=== PATIENT | female | born 1985 | race Caucasian/White ===

== ENCOUNTER 2023-02-20 11:31 | Outpatient (REF) | payer OTHER, MEDICAID, SELFPAY ==
[2023-02-20 13:13] LABS: Hematocrit 40.1 % (37.0-47.0); Hemoglobin 13.7 g/dl (12.0-16.0); Mean Corpuscular HGB Conc 34.2 g/dl (31.0-35.0); Mean Corpuscular Hemoglobin 28.5 pg (27.0-33.0); Mean Corpuscular Volume 83.5 fL (80.0-98.0); Mean Platelet Volume 10.9 fL (9.4-12.3); Platelet Count 282 X10*3/uL (160-400); Red Cell Distribution Width 13.1 % (11.0-16.0); White Blood Count 8.3 X10*3/uL (4.8-10.8)
[2023-02-20 13:56] LABS: Alanine Aminotransferase 20 U/L (0-31); Albumin Level 4.6 g/dL (3.5-5.0); Alkaline Phosphatase 77 U/L (39-117); Aspartate Amino Transferase 19 U/L (5-31); Bilirubin Direct 0.3 mg/dL (0.0-0.5); Bilirubin Total 0.9 mg/dL (0.0-1.0); C Reactive Protein 0.99 mg/dL (< or = 0.50); Total Protein 8.2 g/dL (6.5-8.0)
[2023-02-20 14:07] LABS: TSH reflex Free T4 1.88 uIU/mL (0.32-4.0)
[2023-02-20 14:23] LABS: Folate 8.3 ng/mL (> or = 4.0); Vitamin B12 655 pg/mL (200-900)
[2023-02-24 13:33] LABS: Vitamin D 25-OH, D2 <4 ng/mL; Vitamin D 25-OH, D3 26 ng/mL; Vitamin D 25-OH, Total 26 ng/mL (30-100)
== END 2023-02-20 11:32 | disposition home or self-care (01) ==
LOC: HO.LAB 11:31
PROVIDERS: PCP Internal Medicine; Visit Provider Nurse Practitioner Family
DX: K21.9 Gastro-esophageal reflux disease without esophagitis (principal); K59.00 Constipation, unspecified; R19.7 Diarrhea, unspecified; E55.9 Vitamin D deficiency, unspecified; K64.8 Other hemorrhoids; K62.5 Hemorrhage of anus and rectum; R14.0 Abdominal distension (gaseous); R10.30 Lower abdominal pain, unspecified; K58.2 Mixed irritable bowel syndrome
CPT/HCPCS: 36415; 80076; 82306; 82607; 82746; 84443; 85027; 86140

== ENCOUNTER 2023-02-20 11:31 | Outpatient (AMB) | payer OTHER, MEDICAID, SELFPAY ==
--- NOTE | 2023-02-20 11:33 | MHC.OFFVIS ---
Intake Vital Signs 02/20/23 11:36 Height 5 ft 6 in Weight 249 lb 1.957 oz BMI 40.2 BP 140/85 H Blood Pressure Location Lt brachial Position Sitting Pulse 69 Intake Visit Reasons: Irritable bowel syndrome Intake Note: Patrica presents in the office as a new patient for IBS. CC: She was not diagnosed with IBS. She had allergy testing done and she was allergic to yeast and alek. A few years ago she started bleeding from her rectum so she was diagnosed with internal hemorrhoids from a colonoscopy. She has eliminated gluten from her diet. She has about 7/8 BM a day that are all loose stool. She states that she does have a picture of the blood that occurs on occasion. She will get an urge that she has to have a BM and it will be nothing but blood. More recent there is little clots that come out with it. Extreme anal itching that is so severe. She was given Hydrocortisone cream to use that does not seem to work often. 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 Patient is sent to us by her PCP. Patient has had rectal bleed in the past and recently she started having blood in her stools after bowel movements. Sometimes patient reports that she will have blood even when she does not have a bowel movement. Patient was diagnosed with internal hemorrhoids and no polyps. Had colonoscopy on 12/08/2019 that otherwise was normal. Patient was diagnosed with internal hemorrhoids. Patient reports urge before going to the bathroom with bowel movement and sometimes patient is unable to have a bowel movement. Reports occasional burning like discomfort and sometimes sharp pain in the lower abdomen. Patient denies any unintentional weight loss. PFSH Surgical History (Updated 02/20/23 @ 11:39 by DEREK Nichols) Hx of cervical discectomy Hx of colonoscopy Family History (Updated 02/20/23 @ 11:39 by DEREK Nichols) Father Cancer Prostate cancer Social History (Updated 02/20/23 @ 11:40 by DEREK Nichols) Household Members: Children Alcohol intake: current Alcohol intake frequency: holidays/special occasions only Patient Tobacco Use Status: Never used Tobacco Substance Use Type: Marijuana Review of Systems Const Denies weight gain and Denies weight loss ENT Reports no additional complaints, Denies dysphagia and Denies odynophagia Card Reports no additional complaints Resp Reports no additional complaints GI Reports abdominal pain (sharp stabbing, burning), Denies belching, Denies melena, Denies bloating, Denies change in bowel habits, Reports constipation, Denies dysphagia, Denies excessive flatus, Denies dyspepsia, Denies heartburn, Denies diarrhea, Reports loose stools, Denies nausea, Denies odynophagia and Denies vomiting Musc Reports no additional complaints Neuro Reports no additional complaints Psych Reports no additional complaints Endo Reports no additional complaints Physical Exam Vital Signs: Last Vital Signs Pulse 69 02/20/23 11:36 BP 140/85 H 02/20/23 11:36 BMI result Body Mass Index 40.2 Const General: healthy appearing, no acute distress and well developed Nutritional Appearance: obese Orientation/consciousness: patient oriented x3 HEENT Head: Yes normal to inspection, Yes normocephalic and Yes atraumatic Face and sinus: Yes normal facial exam Mouth: Normal oral and palatal mucosa present Throat: Yes posterior oropharynx normal, Yes tonsils normal and Yes uvula midline Eyes General: appearance normal, both eyes and all related structures Neck Neck: Yes normal visual inspection, Yes full ROM and Yes trachea midline Thyroid: Thyroid normal Resp Effort & Inspection: normal respiratory effort, able to speak in complete sentences, no tracheal deviation and symmetric chest movement Auscultation: clear to auscultation bilaterally Cardio Rate: regular rate Heart sounds: S1 normal heart sound present and S2 normal heart sound present GI Inspection: Yes normal to inspection and No distended Palpation (GI): Soft to palpation, not firm, nontender and No hepatosplenomegaly present Auscultation: normal bowel sounds General: Yes no CVA tenderness Back/Spine/Pelvis Back: no CVA tenderness Skin General skin exam: elasticity normal, turgor normal and dry skin Neuro General: patient oriented x3 Psych Appearance: grossly normal Mental Status: mental status grossly normal Affect: normal affect Assessment & Plan Assessment & Plan (1) Internal hemorrhoid: Code(s): K64.8 - Other hemorrhoids (2) Rectal bleed: Code(s): K62.5 - Hemorrhage of anus and rectum (3) Abdominal bloating: Code(s): R14.0 - Abdominal distension (gaseous) (4) Abdominal pain: Code(s): R10.9 - Unspecified abdominal pain Qualifiers: Abdominal location: lower abdomen, unspecified Qualified Code(s): R10.30 - Lower abdominal pain, unspecified (5) IBS (irritable bowel syndrome): Code(s): K58.9 - Irritable bowel syndrome without diarrhea Qualifiers: Irritable bowel syndrome type: with both diarrhea and constipation Qualified Code(s): K58.2 - Mixed irritable bowel syndrome Plan: Patient denies any family history of inflammatory bowel disease, will check CRP. Will check thyroid, vitamin B12, folate, vitamin-D level liver profile. Will check CBC to make sure that patient is not anemic. Patient will start taking Citrucel to help her bulk her stools and also senna to help her empty her bowels better. Patient will be given script for Proctosol to help her with hemorrhoids. Discussed with patient will FODMAP diet. List of food recommended as well as list of food to avoid given to patient. She will return in the office in 3 months, sooner on as needed basis. Patient is agreeable to this plan and verbalizes understanding of instructions. She was given the opportunity to ask questions all questions answered. Orders: Orders C Reactive Protein Today K58.9 - Irritable bowel syndrome without diarrhea Complete Blood Count no Diff Today K21.9 - Gastro-esophageal reflux disease without esophagitis TSH reflex Free T4 Today K59.00 - Constipation, unspecified Vitamin B12 and Folate Today R19.7 - Diarrhea, unspecified Vitamin D 25-OH (D2 and D3) Today E55.9 - Vitamin D deficiency, unspecified Liver Panel Today R10.9 - Unspecified abdominal pain Medications: New hydrocortisone acetate (Anucort-HC) 25 mg [place] BID 24 ea 2RF hydrocortisone 2.5% (Proctosol HC) 1 appl [place] BID-QID PRN 30 grams 2RF hemorrhoids K64.9 - Unspecified hemorrhoids methylcellulose (laxative) (Citrucel) 1,000 mg (2 x 500 mg) PO DAILY 180 tabs 2RF K59.00 - Constipation, unspecified sennosides (Natural Senna Laxative) 17.2 mg (2 x 8.6 mg) PO BEDTIME 60 tabs 1RF constipation K59.00 - Constipation, unspecified Coding Level of Care Code New Pt Level 4 (70137) Diagnoses Internal hemorrhoid K64.8 Rectal bleed K62.5 Abdominal bloating R14.0 Lower abdominal pain R10.30 Abdominal location: lower abdomen, unspecified Irritable bowel syndrome with both constipation and diarrhea K58.2 Irritable bowel syndrome type: with both diarrhea and constipation Time Spent (min) 45 Comment 30 minutes spent with patient and additional 15 minutes spent reviewing her records
[2023-02-20 11:36] VITALS: BP 140/85; PULSE 69; BMI 40.2
== END 2023-02-20 12:33 | disposition home or self-care (01) ==
PROVIDERS: PCP Internal Medicine; Visit Provider Nurse Practitioner Family
DX: K64.8 Other hemorrhoids (principal); K62.5 Hemorrhage of anus and rectum; R14.0 Abdominal distension (gaseous); R10.30 Lower abdominal pain, unspecified; K58.2 Mixed irritable bowel syndrome
CPT/HCPCS: 99204

== ENCOUNTER 2023-05-23 10:57 | Outpatient (AMB) | payer OTHER, SELFPAY ==
--- NOTE | 2023-05-23 11:02 | MHC.OFFVIS ---
Intake Vital Signs 05/23/23 11:03 Height 5 ft 6 in Weight 251 lb 5.231 oz BMI 40.6 BP 129/74 Blood Pressure Location Lt brachial Position Sitting Pulse 72 Intake Visit Reasons: follow up Intake Note: Patrica presents in the office as a follow up. CC: She is feeling okay - no concerns today! 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 Will check thyroid, vitamin B12, folate, vitamin-D level liver profile. Will check CBC to make sure that patient is not anemic. Patient will start taking Citrucel to help her bulk her stools and also senna to help her empty her bowels better. Patient will be given script for Proctosol to help her with hemorrhoids. Discussed with patient will FODMAP diet. List of food recommended as well as list of food to avoid given to patient. She will return in the office in 3 months, sooner on as needed basis. Patient is agreeable to this plan and verbalizes understanding of instructions. She was given the opportunity to ask questions all questions answered. Plan Orders Orders C Reactive Protein Today K58.9 Complete Blood Count no Diff Today K21.9 TSH reflex Free T4 Today K59.00 Vitamin B12 and Folate Today R19.7 Vitamin D 25-OH (D2 and D3) Today E55.9 Liver Panel Today R10.9 Medications New hydrocortisone acetate (Anucort-HC) 25 mg [place] BID 24 ea 2RF hydrocortisone 2.5% (Proctosol HC) 1 appl [place] BID-QID PRN 30 grams 2RF hemorrhoids K64.9 methylcellulose (laxative) (Citrucel) 1,000 mg (2 x 500 mg) PO DAILY 180 tabs 2RF K59.00 sennosides (Natural Senna Laxative) 17.2 mg (2 x 8.6 mg) PO BEDTIME 60 tabs 1RF constipation K59.00 TODAY'S VISIT: Patient is here today for follow-up and to discuss lab results. Patient reports that she changed her diet and she has been feeling much better. Patient reports that she is moving her bowels well. She is trying to stay away from gluten and lactose. However patient did notice that if she eats pasta that is not home made she will have symptoms. Patient is following low FODMAP diet for the most part. Reports that she is moving her bowels well. Currently is taking Citrucel in the morning and senna in the evening. Reports that she is moving her bowels without any issues. Patient denies dyspepsia, dysphagia or odynophagia. All lab results discussed with patient. Patient denies any GI concerning symptoms PFSH Surgical History Hx of cervical discectomy Hx of colonoscopy Family History Father Cancer Prostate cancer Social History Household Members: Children Alcohol intake: current Alcohol intake frequency: holidays/special occasions only Patient Tobacco Use Status: Never used Tobacco Substance Use Type: Marijuana Review of Systems Const Denies weight gain and Denies weight loss ENT Reports no additional complaints, Denies dysphagia and Denies odynophagia Card Reports no additional complaints Resp Reports no additional complaints GI Denies abdominal pain, Denies belching, Denies melena, Denies bloating, Denies change in bowel habits, Denies dysphagia, Denies excessive flatus, Denies dyspepsia, Denies heartburn, Denies diarrhea, Denies loose stools, Denies nausea, Denies odynophagia and Denies vomiting Musc Reports no additional complaints Neuro Reports no additional complaints Psych Reports no additional complaints Endo Reports no additional complaints Physical Exam Vital Signs: Last Vital Signs Pulse 72 05/23/23 11:03 BP 129/74 05/23/23 11:03 BMI result Body Mass Index 40.6 Const General: healthy appearing, no acute distress and well developed Nutritional Appearance: obese Orientation/consciousness: patient oriented x3 Resp Effort & Inspection: normal respiratory effort, able to speak in complete sentences, no tracheal deviation and symmetric chest movement Auscultation: clear to auscultation bilaterally Cardio Rate: regular rate GI Inspection: Yes normal to inspection, No distended and Yes obesity Palpation (GI): Soft to palpation, not firm, nontender and No hepatosplenomegaly present Auscultation: normal bowel sounds General: Yes no CVA tenderness Back/Spine/Pelvis Back: no CVA tenderness Skin General skin exam: elasticity normal, turgor normal and dry skin Neuro General: patient oriented x3 Psych Appearance: grossly normal Mental Status: mental status grossly normal Assessment & Plan Assessment & Plan (1) Internal hemorrhoid: Code(s): K64.8 - Other hemorrhoids (2) Rectal bleed: Code(s): K62.5 - Hemorrhage of anus and rectum (3) Abdominal bloating: Code(s): R14.0 - Abdominal distension (gaseous) (4) Abdominal pain: Code(s): R10.9 - Unspecified abdominal pain Qualifiers: Abdominal location: upper abdomen, unspecified Qualified Code(s): R10.10 - Upper abdominal pain, unspecified (5) IBS (irritable bowel syndrome): Code(s): K58.9 - Irritable bowel syndrome without diarrhea Qualifiers: Irritable bowel syndrome type: with both diarrhea and constipation Qualified Code(s): K58.2 - Mixed irritable bowel syndrome Plan Patient can continue taking Citrucel daily. Can take Senokot on as needed basis. Low vitamin-D level will send supplement. Discussed with patient the importance to avoid dietary triggers. Continue low FODMAP diet. Stay away from lactose. I will see patient in 6 months, sooner on as needed basis. Patient is agreeable to this plan and verbalizes understanding of instructions. She was given the opportunity to ask questions and all questions answered. Thank you for allowing me to participate in her care Medications: New cholecalciferol (vitamin D3) 50 mcg PO DAILY 90 caps 3RF R79.89 - Other specified abnormal findings of blood chemistry Refilled methylcellulose (laxative) (Citrucel) 1,000 mg (2 x 500 mg) PO DAILY 180 tabs 2RF K59.00 - Constipation, unspecified Coding Level of Care Code Est Pt Level 3 (07412) Diagnoses Internal hemorrhoid K64.8 Rectal bleed K62.5 Abdominal bloating R14.0 Pain of upper abdomen R10.10 Abdominal location: upper abdomen, unspecified Irritable bowel syndrome with both constipation and diarrhea K58.2 Irritable bowel syndrome type: with both diarrhea and constipation Time Spent (min) 30 Comment 20 minutes spent with patient and additional 10 minutes spent reviewing her records
[2023-05-23 11:03] VITALS: BP 129/74; PULSE 72; BMI 40.6
== END 2023-05-23 11:53 | disposition home or self-care (01) ==
PROVIDERS: PCP Internal Medicine; Visit Provider Nurse Practitioner Family
DX: K64.8 Other hemorrhoids (principal); K62.5 Hemorrhage of anus and rectum; R14.0 Abdominal distension (gaseous); R10.10 Upper abdominal pain, unspecified; K58.2 Mixed irritable bowel syndrome
CPT/HCPCS: 99213

== ENCOUNTER → 2023-05-23 10:57 | Outpatient (BNVA) | payer OTHER, SELFPAY | PROVIDERS: PCP Internal Medicine; Visit Provider Nurse Practitioner Family ==

== ENCOUNTER 2024-01-09 08:31 | Outpatient (AMB) | payer OTHER, SELFPAY ==
[2024-01-09 08:43] VITALS: BP 138/92; PULSE 70; O2SAT 99; BMI 44.0
--- NOTE | 2024-01-09 08:43 | MHC.OFFVIS ---
Vital Signs 01/09/24 08:43 Height 5 ft 6 in Weight 272 lb 7.861 oz BMI 44.0 BP 138/92 H Blood Pressure Location Rt brachial Position Sitting Pulse 70 Pulse Source Pulse Oximeter Pulse Oximetry (%) 99 Oxygen Delivery Method Room Air Intake Visit Reasons: 6 mos FUV. Rescheduled x1 Intake Note: Patrica presents in office today for a scheduled FUV CC; Since last visit; Labs ordered -- None. Rx ordered ? citrucel and vitamin D3. Diagnostics/images ordered ? none. Relevant GI Sx as reported per pt. ?Fecal abnormalities -- Diarrhea intermittently ?Bloating -- Intermittently. ?Hx of any recent surgeries? None Pt reports needing a refill of the suppositories. 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 Rescheduled x1: Details: LAST VISIT Internal hemorrhoid Rectal bleed Abdominal bloating Abdominal pain IBS (irritable bowel syndrome) Plan Patient can continue taking Citrucel daily. Can take Senokot on as needed basis. Low vitamin-D level will send supplement. Discussed with patient the importance to avoid dietary triggers. Continue low FODMAP diet. Stay away from lactose. I will see patient in 6 months, sooner on as needed basis. Patient is agreeable to this plan and verbalizes understanding of instructions. She was given the opportunity to ask questions and all questions answered. ? Thank you for allowing me to participate in her care Medications New cholecalciferol (vitamin D3) 50 mcg PO DAILY 90 caps 3RF R79.89 Refilled methylcellulose (laxative) (Citrucel) 1,000 mg (2 x 500 mg) PO DAILY 180 tabs 2RF K59.00 TODAY'S VISIT Patient is here today for follow-up. Patient reports that she has been feeling well except for her bowel movements. Patient not sure if it is because of what she has been eating. She admits that she has been not eating very healthy. Lot of quick meals during the summer. Not always healthy. Patient reports frequent loose stools and then constipation. Patient continues to have blood in her stools on occasions. No family history of CRC that she is aware of. Patient never had trouble with anesthesia in the past. Had colonoscopy when she was 29 years old. No history of sleep apnea. Not on any anticoagulation medication. Patient denies any cardiac or respiratory symptoms. Patient denies any dyspepsia, dysphagia or odynophagia. Patient denies melena, unintentional weight loss or ribbon like stools. PFSH Surgical History Hx of cervical discectomy Hx of colonoscopy Family History Father Cancer Prostate cancer Social History Household Members: Children Alcohol intake: current Alcohol intake frequency: holidays/special occasions only Patient Tobacco Use Status: Never used Tobacco Substance Use Type: Marijuana Review of Systems Const Denies weight gain and Denies weight loss ENT Reports no additional complaints, Denies dysphagia and Denies odynophagia Card Reports no additional complaints Resp Reports no additional complaints GI Denies abdominal pain, Denies belching, Denies melena, Reports bloating, Reports hematochezia, Denies change in bowel habits, Reports constipation, Denies dysphagia, Denies excessive flatus, Denies dyspepsia, Denies heartburn, Denies diarrhea, Reports loose stools, Denies nausea, Denies odynophagia and Denies vomiting Musc Reports no additional complaints Neuro Reports no additional complaints Psych Reports no additional complaints Endo Reports no additional complaints Physical Exam Vital Signs: Last Vital Signs Pulse 70 01/09/24 08:43 BP 138/92 H 01/09/24 08:43 Pulse Ox 99 01/09/24 08:43 Oxygen Delivery Method Room Air 01/09/24 08:43 BMI result Body Mass Index 44.0 Const General: healthy appearing and no acute distress Nutritional Appearance: obese Orientation/consciousness: patient oriented x3 Resp Effort & Inspection: normal respiratory effort, able to speak in complete sentences, no tracheal deviation and symmetric chest movement Auscultation: clear to auscultation bilaterally Cardio Rate: regular rate GI Inspection: Yes normal to inspection, No distended and Yes obesity Palpation (GI): Soft to palpation, not firm, nontender and No hepatosplenomegaly present Auscultation: normal bowel sounds General: Yes no CVA tenderness Back/Spine/Pelvis Back: no CVA tenderness Skin General skin exam: elasticity normal, turgor normal and dry skin Neuro General: patient oriented x3 Psych Appearance: grossly normal Mental Status: mental status grossly normal Assessment & Plan Assessment & Plan (1) Internal hemorrhoid: Code(s): K64.8 - Other hemorrhoids (2) Rectal bleed: Code(s): K62.5 - Hemorrhage of anus and rectum (3) Abdominal bloating: Code(s): R14.0 - Abdominal distension (gaseous) (4) Abdominal pain: Code(s): R10.9 - Unspecified abdominal pain Qualifiers: Abdominal location: generalized Qualified Code(s): R10.84 - Generalized abdominal pain (5) IBS (irritable bowel syndrome): Code(s): K58.9 - Irritable bowel syndrome, unspecified Qualifiers: Irritable bowel syndrome type: with both diarrhea and constipation Qualified Code(s): K58.2 - Mixed irritable bowel syndrome Plan Patient continues to have diarrhea and occasional blood in his stools. Patient will be sent for diagnostic colonoscopy. No family history of CRC. No issues with anesthesia in the past. No history of sleep apnea. Not on any anticoagulation medication. Patient denies any cardiac or respiratory symptoms. Patient will try to take probiotics and fiber. Discussed with patient changing her diet eating healthier. Avoid food that is fried. What to expect before during and after procedure discussed with patient. Stressed the importance of good bowel prep. Instructions on split MiraLax prep and Dulcolax given to patient. I will see patient after the procedure, sooner on as needed basis. She is agreeable to this plan and verbalizes understanding of instructions. She was given the opportunity to ask questions and all questions answered. Thank you for allowing me to participate in her care Medications: New hydrocortisone acetate 25 mg [place] DAILY PRN 12 ea 2RF hemorrhoids bisacodyl (Dulcolax (bisacodyl)) take 4 tabs at noon the day before your colonoscopy 20 mg (4 x 5 mg) PO ONCE 1 day 4 tabs 0RF Z12.11 - Encounter for screening for malignant neoplasm of colon polyethylene glycol 3350 (Miralax) As directed by gastroenterology department at [facility] 238 grams PO ONCE 238 grams 0RF Z12.11 - Encounter for screening for malignant neoplasm of colon Refilled hydrocortisone 2.5% (Proctosol HC) 1 appl [place] BID-QID PRN 30 grams 2RF hemorrhoids K64.9 - Unspecified hemorrhoids Coding Level of Care Code Est Pt Level 3 (60258) Diagnoses Internal hemorrhoid K64.8 Rectal bleed K62.5 Abdominal bloating R14.0 Generalized abdominal pain R10.84 Abdominal location: generalized Irritable bowel syndrome with both constipation and diarrhea K58.2 Irritable bowel syndrome type: with both diarrhea and constipation Time Spent (min) 30 Comment 20 minutes spent with patient and additional 10 minutes spent reviewing her records
== END 2024-01-09 09:32 | disposition home or self-care (01) ==
PROVIDERS: PCP Internal Medicine; Visit Provider Nurse Practitioner Family
DX: K64.8 Other hemorrhoids (principal); K62.5 Hemorrhage of anus and rectum; R14.0 Abdominal distension (gaseous); R10.84 Generalized abdominal pain; K58.2 Mixed irritable bowel syndrome
CPT/HCPCS: 99213

== ENCOUNTER → 2024-01-09 08:31 | Outpatient (BNVA) | payer OTHER, SELFPAY | PROVIDERS: PCP Internal Medicine; Visit Provider Nurse Practitioner Family ==

== ENCOUNTER 2024-02-08 11:26 | Day surgery (SDC) | payer OTHER, SELFPAY ==
[2024-02-06 14:23] VITALS: BMI 44.0
--- NOTE | 2024-02-07 10:05 | HO.ANESPROP2 ---
Documented by User: Jennifer Godinez NP 02/07/24 10:05 HPI - Anesthesia Eval Consult details Narrative: 39yo F for Colonoscopy [facility] Past Medical History Medical History Constipation Hemorrhoids Family History Family History Father Cancer Prostate cancer Surgical History Surgical History Hx of cervical discectomy Hx of colonoscopy Social History Social History Household Members: Children Are you a primary healthcare sales representative to a significant other at home: No Do you presently have visiting nurse or other home services: No Alcohol intake: current Alcohol intake frequency: holidays/special occasions only Patient Tobacco Use Status: Never used Tobacco Substance Use Type: Marijuana Meds Allergies Allergy/AdvReac Type Severity Reaction Status Date / Time No Known Allergies Allergy Verified 02/08/24 13:15 Exam Height,Weight and Vital Signs: Height 5 ft 6 in Weight 123.576 kg Assessment and Plan Assessment Anesthesia Assessment: Chart Reviewed Documented by User: Rissa Faulkner MD 02/08/24 13:29 HPI - Anesthesia Eval Consult details Narrative: 39yo F for EGD and Colonoscopy [facility] Active Problems Active Problems: Denies cardiac or respiratory history Increased BMI 43.7. Denies KELLY Hoarseness- feeling of something stuck in throat. No vomiting Occasional Marijuana. Last 3 days ago Past Medical History Medical History Constipation Hemorrhoids Family History Family History Father Cancer Prostate cancer Family history of problems with anesthesia: No Surgical History Surgical History Hx of cervical discectomy Hx of colonoscopy History of Problems with Anesthesia: No Social History Social History Household Members: Children Are you a primary healthcare sales representative to a significant other at home: No Do you presently have visiting nurse or other home services: No Alcohol intake: current Alcohol intake frequency: holidays/special occasions only Patient Tobacco Use Status: Never used Tobacco Substance Use Type: Marijuana Meds Allergies Allergy/AdvReac Type Severity Reaction Status Date / Time No Known Allergies Allergy Verified 02/08/24 13:15 Exam Height,Weight and Vital Signs: Height 5 ft 6 in Weight 123.576 kg Vital Signs Temp Pulse Resp BP Pulse Ox O2 Del Method 02/08/24 13:13 98.2 F 101 H 18 145/86 H 97 Room Air Pertinent Lab Results Pertinent Lab Results: Lab Results 02/08/24 Range/Units 12:50 Urine Test NEGATIVE (NEGATIVE) Airway Mallampati Class: II TM Dist: >3cm Neck ROM: Full (S/p cervical disc surgery with fusion 1 level) Loose/Missing/Broken Teeth: No Heart: RRR Lungs: CTAB Assessment and Plan Assessment Anesthesia Assessment: Anesthesia Plan Discussed and Chart Reviewed Final Anesthetic Review Family History of Problems with Anesthesia: No History of Problems with Anesthesia: No NPO: Yes ASA Class: III Final Preanesthetic Review: No Changes in Pt Med Stat, Meds/Allgs Chart Reviewed, Consent Obtained/Reviewed and Anes Risks/Benef Reviewed Patient Risk: Intermediate Procedure Risk: Low Assessment/Block/Sedation in SS: Assess/Block/Sedation-SS Anesthetic Plan Anesthetic Plan: TIVA Disposition: Standard PACU
[2024-02-08 12:54] LABS: UPreg QC Valid YES
[2024-02-08 12:57] LABS: Urine Pregnancy NEGATIVE (NEGATIVE)
[2024-02-08 13:00] VITALS: BMI 43.7
[2024-02-08] MEDS: Lactated Ringers 1,000 ML 100 ML IVCONT (13:04)
[2024-02-08 13:13] VITALS: BP 145/86; PULSE 101; RESP 18; TEMP 36.8; O2SAT 97
--- NOTE | 2024-02-08 14:20 | MHC.SHP ---
Pre-Procedural Eval Section A - 24 Hr Update-Section A only Date of Service: 02/08/24 Section B - Complete if H&P > 30 days Chief Complaint: Hemorrhage of anus and rectum,IBS Details of Present Illness: foreign body sensation Relevant Family History (Specify if Yes): No Relevant Social History: Other (specify) (THC) Present Medications: see Short Stay Collaborative assessment Medical History: Significant History ( Constipation Hemorrhoids) History of Previous Operations: Relevant previous surgery/procedure and date(s) ( Hx of cervical discectomy Hx of colonoscopy) Allergies: Allergies Allergy/AdvReac Type Severity Reaction Status Date / Time No Known Allergies Allergy Verified 02/08/24 13:15 Review of Systems Sugical H&P ROS: Negative: Constitution, Cardiovascular, Respiratory, Neurological, Psychiatric, Hem-Onc, Allergic/Immunologic, Gastrointestinal, Genitourinary, Musculoskeletal, Integumentary, Endocrine and Eyes/Ears/Nose/Throat Exam Surgical H&P Exam: Normal: HEENT, Normal: Heart, Normal: Lungs, Normal: Extremities, Normal: Abdomen, Normal: Skin and Normal: Neurological Plan Diagnosis/Plan: Unchanged I have reviewed the history and physical and performed a pertinent physical examination on my patient. No changes have occurred unless specified. EGD being added as she has foreign body sensation, unsure if she swallowed something that is causing her discomfort Time Spent With Patient Time: Total time managing care of this patient today ____ minutes.
--- NOTE | 2024-02-08 15:15 | HO.OPN-COLON ---
Colonoscopy Operative Note Operative Note Date of Service: 02/08/24 Narrative: Operative Information Procedure Description: EGD, Colonoscopy Indication: esophageal discomfort, rectal bleeding Anesthesia: MAC FLEXIBLE TRANSORAL UPPER GASTROINTESTINAL ENDOSCOPY AND COLONOSCOPY PROCEDURE NOTE UPPER ENDOSCOPY Consent: Indications for the procedure and potential complications of bleeding, perforation, reaction to medications and missed diagnosis were discussed with the patient and informed consent was obtained. Instrument: Olympus GIF H 190 J mid size upper endoscope Monitoring: Vital signs and clinical assessment, continuous EKG monitoring, Pulse oximetry, Carbon Dioxide monitoring and blood pressure monitoring were done throughout the procedure. Procedure: The patient was placed in the left lateral decubitis position and pre-procedure medications were administered and a bite block was placed. The endoscope was inserted into the mouth and advanced under direct vision to the third part of duodenum. A careful inspection was made as the upper endoscope was withdrawn including a retroflexed examination of the proximal stomach; Findings and interventions are described below. Findings: Larynx:normal Esophagus: GE junction at 40 cm, diaphragm hiatus at 40 cm, erosive esophagitis LA grade C in distal esophagus with ringing of mucosa, bx taken Stomach: Normal mucosa. Biopsies were obtained. Grade 2 flap valve on retroflexed examination of the cardia. Duodenum: Normal bulb and descending duodenum, bx taken Intervention: Biopsies as noted above, COLONOSCOPY Instrument: Olympus variable stiffness pediatric scope 190L Colonoscopy Monitoring: Vital signs and clinical assessment, continuous EKG monitoring, Pulse oximetry, Carbon Dioxide monitoring and blood pressure monitoring were done throughout the procedure. Colon withdrawal time was 16 minutes. Procedure: The patient was placed in the left lateral decubitis position and pre-procedure medications were administered. After a digital rectal examination of the ano-rectum, the video colonoscope was inserted into the rectum and advanced through the colon to the cecum/TI. The colonoscope was slowly withdrawn in a retrograde panoramic fashion and the colon mucosa was carefully examined including a retroflexed view of the rectum. Findings and interventions are described below. Procedure Difficulty:moderate Findings: Terminal Ileum-normal Cecum:normal Ascending Colon: 7-8 mm flat p[olyp lifted with eleview then removed with cold snare, residual tissue removed with cold forceps Transverse Colon -normal Descending Colon:normal Sigmoid Colon: mild diverticulosis Rectum: Retroflexion with small internal hemorrhoids, grade I Anorectum - normal Colon preparation: Oriental Bowel Preparation Scale Right colon; 1-2 Transverse colon: 2 Left colon; 2 (0 = Unprepared colon segment with mucosa not seen due to solid stool that cannot be cleared. 1 = Portion of mucosa of the colon segment seen, but other areas of the colon segment not well seen due to staining, residual stool and/or opaque liquid. 2 = Minor amount of residual staining, small fragments of stool and/or opaque liquid, but mucosa of colon segment seen well. 3 = Entire mucosa of colon segment seen well with no residual staining, small fragments of stool or opaque liquid) Impression and Post Procedure Diagnosis: Endoscopy Findings: erosive esophagitis Colonoscopy Findings: diverticulosis colon polyp internal hemorrhoids Plan: Await Pathology results Repeat Colonoscopy in 3 years due to fair pre on right and polyp or earlier if clinically indicated High fiber diet leaflet avoid straining at stool, epsom salts and sitz bath, anusol supps or cream commence PPI Above findings were reviewed with the patient and relevant handouts were provided if indicated.
[2024-02-08 15:22] VITALS: BP 114/67; PULSE 82; RESP 16; TEMP 37; O2SAT 97
[2024-02-08 15:37] VITALS: BP 139/89; PULSE 81; RESP 16; TEMP 36.6; O2SAT 99
== END 2024-02-08 15:55 | disposition home or self-care (01) ==
PROVIDERS: Nurse Practitioner; PCP Internal Medicine; Visit Provider Internal Medicine Gastroenterology
PROC: (CPT 43239; principal; 2024-02-08 14:10)
DX: K22.10 Ulcer of esophagus without bleeding (principal); D12.2 Benign neoplasm of ascending colon; K57.30 Diverticulosis of large intestine without perforation or abscess without bleeding; K64.0 First degree hemorrhoids; K64.8 Other hemorrhoids; K58.2 Mixed irritable bowel syndrome; Z79.899 Other long term (current) drug therapy
CPT/HCPCS: 43239; 45381; 45385; 45380; 81025; 88305; 88313; 88342; J2003; J2704

== ENCOUNTER → 2024-02-08 11:26 | Outpatient (BNV) | payer OTHER, SELFPAY | PROVIDERS: PCP Internal Medicine; Visit Provider Internal Medicine Gastroenterology | DX: K62.5 Hemorrhage of anus and rectum (principal); K63.5 Polyp of colon; K57.30 Diverticulosis of large intestine without perforation or abscess without bleeding; K64.0 First degree hemorrhoids; K20.80 Other esophagitis without bleeding | CPT/HCPCS: 43239; 45381; 45385 ==